=== PATIENT | male | born 2000 | race Caucasian/White ===

== ENCOUNTER 2022-03-01 11:50 | Outpatient (RCR) | payer BC, SELFPAY | END 2022-04-06 13:22 | disposition home or self-care (01) | PROVIDERS: Visit Provider Family Medicine | DX: S16.1XXA Strain of muscle, fascia and tendon at neck level, initial encounter (principal); S06.0X0A Concussion without loss of consciousness, initial encounter; Z51.89 Encounter for other specified aftercare | CPT/HCPCS: 97140; 97161 ==